=== PATIENT | male | born 1980 | race Caucasian/White ===

== ENCOUNTER 2022-01-08 01:25 | Emergency (ER) | payer OTHER ==
[~2022-01-08] VITALS: Ht 170.2 cm; Wt 74.8 kg
--- NOTE | 2022-01-08 01:35 | NUR ---
DR Talamantes at bedside, MSE in progress
[2022-01-08] MEDS ORDERED: PROCHLORPERAZINE EDISYLATE 10 MG/2 ML VIAL ONE (01:38)
--- NOTE | 2022-01-08 01:40 | NUR ---
Patient's SO at bedside
[2022-01-08] MEDS ORDERED: THIAMINE HCL 100 MG TABLET PO ONE (01:45)
[2022-01-08] MEDS ORDERED: PROCHLORPERAZINE EDISYLATE 10 MG/2 ML VIAL IV ONE (01:45)
[2022-01-08] MEDS ORDERED: IV NS 1000 ML 1,000 ML IV ONE (01:45)
[2022-01-08 01:54] LABS: HEMATOCRIT 43.5 % (36.7-47.1); MEAN CORPUSCULAR HEMOGLOBIN 27.6 uug (23.8-33.4); PLATELET COUNT (AUTO) 351 K/uL (152-348)
[2022-01-08 01:56] LABS: POTASSIUM 3.5 mmol/L (3.5-5.1)
[2022-01-08 02:02] LABS: BILIRUBIN,DIRECT 0.1 mg/dL (0.0-0.2); BILIRUBIN,TOTAL 0.3 mg/dL (0.2-1.0); TOTAL PROTEIN, SERUM 7.6 g/dL (6.4-8.2)
[2022-01-08] MEDS ORDERED: MAGNESIUM SULFATE/D5W 100 ML IV SCH (02:15)
--- NOTE | 2022-01-08 02:55 | NUR ---
IV stop time complete for Magnesium Sulfate/dextrose
--- NOTE | 2022-01-08 03:00 | NUR ---
IV NS 1L stop time complete
[2022-01-08] MEDS ORDERED: THIAMINE HCL 200 MG/2 ML VIAL ONE (03:14)
[2022-01-08] MEDS ORDERED: MAGNESIUM SULFATE/D5W 100 ML ONE (03:14)
[2022-01-08 06:09] VITALS: BP 145/74
== END 2022-01-08 06:17 | disposition home or self-care (01) ==
LOC: ER 01:35
DX: F10.121 Alcohol abuse with intoxication delirium (principal); R74.01 Elevation of levels of liver transaminase levels
CPT/HCPCS: 80076; 80048; 83735; 85025; 36415; 99284; 96365; 96375; 80320; J3475; J0780; J3411; J7040; G0480